=== PATIENT | female | born 2000 | race Hispanic/Latino ===

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

== ENCOUNTER 2019-07-20 11:13 | Emergency (ER) | payer BC ==
--- NOTE | 2019-07-20 12:28 | ER ---
Nurse's Notes [facility] Name: Nadia Bates Age: 19 yrs Sex: Female : 2000 Arrival Date: 07/20/2019 Time: 11:18 Bed 7 Private MD: Diagnosis: Headache;Other allergic rhinitis Presentation: 07/19 11:25 Chief complaint: Body aches and headache x 4 days, sinus congestion and drainage x 3 hb days, intermittent sharp left sided chest pain since yesterday. Denies chills/fever/N/V. Coronavirus screen: Proceed with normal triage. Ebola Screen: No symptoms or risks identified at this time. Initial Sepsis Screen: Does the patient meet any 2 criteria? No. Patient's initial sepsis screen is negative. Does the patient have a suspected source of infection? No. Patient's initial sepsis screen is negative. Risk Assessment: Do you want to hurt yourself or someone else? Patient reports no desire to harm self or others. Onset of symptoms was July 15, 2019. 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 - Social history:: Smoking status: Patient denies any tobacco usage or history of. - Family history:: not pertinent. Screenin:42 Abuse screen: Denies threats or abuse. Denies injuries from another. Nutritional ph screening: No deficits noted. Tuberculosis screening: No symptoms or risk factors identified. 11:51 Fall Risk None identified. ph Assessment: 11:40 General: Appears in no apparent distress. comfortable, well groomed, Behavior is calm, ph cooperative, appropriate for age. Pain: Complains of pain in head. Neuro: Level of Consciousness is awake, alert, obeys commands, Oriented to person, place, time, situation, Reports headache frontal area, Denies weakness dizziness. Cardiovascular: Denies chest pain, shortness of breath, Capillary refill < 3 seconds in bilateral fingers Patient's skin is warm and dry. Respiratory: Airway is patent Respiratory effort is even, unlabored, Respiratory pattern is regular, symmetrical, Breath sounds are clear bilaterally. Denies cough, shortness of breath. GI: No signs and/or symptoms were reported involving the gastrointestinal system. EENT: Reports nasal congestion nasal discharge pain when swallowing. Derm: Skin is intact, is healthy with good turgor, Skin is pink, warm \T\ dry. Musculoskeletal: Circulation, motion, and sensation intact. Range of motion: intact in all extremities. Vital Signs: 11:25 BP 115 / 80; Pulse 104; Resp 16; Temp 98.5; Pulse Ox 100% ; Weight 71.21 kg; Height 4 hb ft. 11 in. (149.86 cm); Pain 5/10; 12:17 BP 101 / 78; Pulse 81; Resp 16; Temp 97.9(TE); Pulse Ox 100% on R/A; mh5 11:25 Body Mass Index 31.71 (71.21 kg, 149.86 cm) hb [place] Coma Score: 12:25 Eye Response: spontaneous(4). Verbal Response: oriented(5). Motor Response: obeys [facility] commands(6). Total: 15. ED Course: 11:18 Patient arrived in ED. mr 11:28 Triage completed. hb 11:29 Arm band placed on. hb 11:30 Ronnie Mina MD is Attending Physician. marj 11:32 Jigna Mireles, RN is Primary Nurse. ph 11:40 Patient has correct armband on for positive identification. Bed in low position. Warm mh5 blanket given. Pulse ox on. NIBP on. 12:26 Ronnie Mina MD is Referral Physician. marj 12:52 No provider procedures requiring assistance completed. Patient admitted, IV remains in ph place. Administered Medications: No medications were administered Outcome: 12:27 Discharge ordered by . marj 12:53 Discharged to home ambulatory. ph 12:53 Condition: good 12:53 Discharge instructions given to patient, Instructed on discharge instructions, follow up and referral plans. medication usage, Demonstrated understanding of instructions, follow-up care, medications, Prescriptions given X 1. 12:53 Patient left the ED. ph Signatures: Ronnie Mina MD MD cha Rivera, Mary mr Jigna Mireles, DESMOND RN Lupe Fuentes RN RN Lucita Singh 5 Corrections: (The following items were deleted from the chart) :29 11:29 LMP 06/21/2019 hb hb
--- NOTE | 2019-07-20 12:28 | EDPHYS ---
Physician Documentation [facility] Name: Nadia Bates Age: 19 yrs Sex: Female : 2000 Arrival Date: 07/20/2019 Time: :18 Bed 7 Private MD: ED Physician Ronnie Mina HPI: 07/19 12:22 This 19 yrs old Female presents to ER via Ambulatory with complaints of marj Headache, Sore Throat, Chest Pain. 12:22 The patient complains of pain to the forehead. The patient describes the headache as marj aching. Onset: The symptoms/episode began/occurred 1 day(s) ago. Associated signs and symptoms: The patient has no apparent associated signs or symptoms. Severity of symptoms: At its worst the pain was mild, in the emergency department the pain is unchanged. 12:22 The patient presents with sore throat. The patient describes throat pain as burning. marj Onset: The symptoms/episode began/occurred 1 day(s) ago. Headache History: Denies prior headaches. Severity of symptoms: At their worst the symptoms were mild, in the emergency department the symptoms are unchanged. Modifying factors: The symptoms are alleviated by nothing, the symptoms are aggravated by nothing. Associated signs and symptoms: The patient has no apparent associated signs or symptoms. The symptoms are alleviated by nothing. the symptoms are aggravated by nothing. The patient has experienced similar episodes in the past, a few times. 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 - Social history:: Smoking status: Patient denies any tobacco usage or history of. - Family history:: not pertinent. ROS: 12:22 Constitutional: Negative for fever, chills, and weight loss, Eyes: Negative for injury, marj pain, redness, and discharge, Neck: Negative for injury, pain, and swelling, Cardiovascular: Negative for chest pain, palpitations, and edema, Respiratory: Negative for shortness of breath, cough, wheezing, and pleuritic chest pain, Abdomen/GI: Negative for abdominal pain, nausea, vomiting, diarrhea, and constipation, Back: Negative for injury and pain, : Negative for injury, bleeding, discharge, and swelling, MS/Extremity: Negative for injury and deformity, Skin: Negative for injury, rash, and discoloration, Neuro: Negative for headache, weakness, numbness, tingling, and seizure, Psych: Negative for depression, anxiety, suicide ideation, homicidal ideation, and hallucinations, Allergy/Immunology: Negative for hives, rash, and allergies, Endocrine: Negative for neck swelling, polydipsia, polyuria, polyphagia, and marked weight changes, Hematologic/Lymphatic: Negative for swollen nodes, abnormal bleeding, and unusual bruising. 12:22 ENT: Positive for sore throat. Exam: 12:22 Constitutional: This is a well developed, well nourished patient who is awake, alert, marj and in no acute distress. Head/Face: Normocephalic, atraumatic. Eyes: Pupils equal round and reactive to light, extra-ocular motions intact. Lids and lashes normal. Conjunctiva and sclera are non-icteric and not injected. Cornea within normal limits. Periorbital areas with no swelling, redness, or edema. ENT: Nares patent. No nasal discharge, no septal abnormalities noted. Tympanic membranes are normal and external auditory canals are clear. Oropharynx with no redness, swelling, or masses, exudates, or evidence of obstruction, uvula midline. Mucous membranes moist. Neck: Trachea midline, no thyromegaly or masses palpated, and no cervical lymphadenopathy. Supple, full range of motion without nuchal rigidity, or vertebral point tenderness. No Meningismus. Chest/axilla: Normal chest wall appearance and motion. Nontender with no deformity. No lesions are appreciated. Cardiovascular: Regular rate and rhythm with a normal S1 and S2. No gallops, murmurs, or rubs. Normal PMI, no JVD. No pulse deficits. Respiratory: Lungs have equal breath sounds bilaterally, clear to auscultation and percussion. No rales, rhonchi or wheezes noted. No increased work of breathing, no retractions or nasal flaring. Abdomen/GI: Soft, non-tender, with normal bowel sounds. No distension or tympany. No guarding or rebound. No evidence of tenderness throughout. Back: No spinal tenderness. No costovertebral tenderness. Full range of motion. Skin: Warm, dry with normal turgor. Normal color with no rashes, no lesions, and no evidence of cellulitis. MS/ Extremity: Pulses equal, no cyanosis. Neurovascular intact. Full, normal range of motion. Neuro: Awake and alert, GCS 15, oriented to person, place, time, and situation. Cranial nerves II-XII grossly intact. Motor strength 5/5 in all extremities. Sensory grossly intact. Cerebellar exam normal. Normal gait. Psych: Awake, alert, with orientation to person, place and time. Behavior, mood, and affect are within normal limits. 12:22 Neck: ROM/movement: is normal, no acute changes, Meningeal signs: are not present, Kernig's sign is negative, Brudzinski's sign is negative, Lymph nodes: no appreciated lymphadenopathy. Vital Signs: 11:25 BP 115 / 80; Pulse 104; Resp 16; Temp 98.5; Pulse Ox 100% ; Weight 71.21 kg; Height 4 hb ft. 11 in. (149.86 cm); Pain 5/10; 12:17 BP 101 / 78; Pulse 81; Resp 16; Temp 97.9(TE); Pulse Ox 100% on R/A; mh5 11:25 Body Mass Index 31.71 (71.21 kg, 149.86 cm) hb [place] Coma Score: 12:25 Eye Response: spontaneous(4). Verbal Response: oriented(5). Motor Response: obeys marj commands(6). Total: 15. MDM: 11:31 Patient medically screened. [facility] 12:25 Data reviewed: vital signs, nurses notes. marj 12:25 Differential diagnosis: migraine, tension headache. Data interpreted: monitor and storage bin tender: marj not applicable for this patient encounter. Pulse oximetry: on room air is 100 %. Test interpretation: by ED physician or midlevel provider:. Counseling: I had a detailed discussion with the patient and/or guardian regarding: the historical points, exam findings, and any diagnostic results supporting the discharge/admit diagnosis, lab results, the need for outpatient follow up, for definitive care, a family practitioner. ED course: non toxic well hydrated young healthy female. Administered Medications: No medications were administered Disposition: 07/20/19 12:27 Discharged to Home. Impression: Headache, Other allergic rhinitis. - Condition is Stable. - Discharge Instructions: General Headache Without Cause, Allergic Rhinitis, General Headache Without Cause, [id number]. - Prescriptions for Tracie- D 12 Hour 60-120 mg Oral Tablet Sustained Release 12 hr - take 1 tablet by ORAL route every 12 hours As needed; 20 tablet. - Work release form, Medication Reconciliation Form, Thank You Letter, Antibiotic Education, Prescription Opioid Use form. - Follow up: Ronnie Mina MD; When: 2 - 3 days; Reason: Recheck today's complaints, Continuance of care, Re-evaluation by your physician. - Problem is new. - Symptoms have improved. Signatures: Ronnie Mina MD MD cha Hall, Patricia, RN RN Lupe Fuentes RN RN Corrections: (The following items were deleted from the chart) 12:53 12:27 07/20/2019 12:27 Discharged to Home. Impression: Headache; Other allergic ph rhinitis. Condition is Stable. Forms are Medication Reconciliation Form, Thank You Letter, Antibiotic Education, Prescription Opioid Use. Follow up: Dr. Ronnie Mina; When: 2 - 3 days; Reason: Recheck today's complaints, Continuance of care, Re-evaluation by your physician. Problem is new. Symptoms have improved. marj
[2019-07-20 12:59] VITALS: O2SAT 100
[2019-07-20 13:00] VITALS: BP 101/78; TEMP 97.9
== END 2019-07-20 12:53 | disposition home or self-care (01) ==
LOC: ER 11:13
DX: J30.89 Other allergic rhinitis (principal); J45.909 Unspecified asthma, uncomplicated
CPT/HCPCS: 99283

== ENCOUNTER 2019-11-10 15:01 | Emergency (ER) | payer BC ==
--- NOTE | 2019-11-10 16:17 | ER ---
Nurse's Notes [facility] Name: Nadia Bates Age: 19 yrs Sex: Female : 2000 Arrival Date: 11/10/2019 Time: 15:04 Bed 23 Private MD: Alessio Maldonado R Diagnosis: Urinary tract infection, site not specified Presentation: 11/09 15:12 Chief complaint: Patient states: Painful urination for 3 days. No fever. Coronavirus ll1 screen: Client denies travel out of the [place] in the last 14 days. At this time, the client does not indicate any symptoms associated with coronavirus-19. Ebola Screen: Patient denies travel to an Ebola-affected area in the 21 days before illness onset. Initial Sepsis Screen: Does the patient meet any 2 criteria? No. Patient's initial sepsis screen is negative. Risk Assessment: Do you want to hurt yourself or someone else? Patient reports no desire to harm self or others. Onset of symptoms was November 08, 2019. 15:12 Method Of Arrival: Ambulatory ll1 15:12 Acuity: ANABELL 4 ll1 18:13 Initial Sepsis Screen: Does the patient have a suspected source of infection? Yes: ll1 Dysuria/Frequency/Urgency/UTI. Triage Assessment: 16:00 General: Appears in no apparent distress. Behavior is calm, cooperative. Pain: Denies ll1 pain. Aggravated by with urination only. 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 - Social history:: Smoking status: Patient denies any tobacco usage or history of. Screenin:00 Abuse screen: Denies threats or abuse. Nutritional screening: No deficits noted. ll1 Tuberculosis screening: No symptoms or risk factors identified. Fall Risk None identified. Total [place] Fall Scale indicates No Risk (0-24 pts). Assessment: 16:00 General: Appears in no apparent distress. Behavior is calm, cooperative. Pain: Denies ll1 pain. Neuro: No deficits noted. Cardiovascular: No deficits noted. Respiratory: No deficits noted. GI: Abdomen is flat, Bowel sounds present X 4 quads. Abd is soft and non tender X 4 quads. Patient currently denies diarrhea, nausea, vomiting. : Urine is clear, Reports burning with urination, since 3 days. Vital Signs: 15:12 BP 126 / 82; Pulse 100; Resp 17; Temp 99.1; Pulse Ox 100% ; Weight 73.94 kg; Height 4 ll1 ft. 11 in. (149.86 cm); Pain 6/10; 15:12 Body Mass Index 32.92 (73.94 kg, 149.86 cm) ll1 ED Course: 15:04 Patient arrived in ED. mr 15:04 Alessio Maldonado MD is Private Physician. mr 15:11 Anaebl Ghotra FNP-C is [facility]. kb 15:11 Amador Costa MD is Attending Physician. kb 15:13 Triage completed. ll1 15:13 Arm band placed on. ll1 16:03 Kesha Cedillo, DESMOND is Primary Nurse. iw 16:16 Alessio Maldonado MD is Referral Physician. kb 17:00 Patient has correct armband on for positive identification. Bed in low position. Call ll1 light in reach. Side rails up X 1. Cardiac monitoring not applicable on this patient. 17:00 No provider procedures requiring assistance completed. Patient did not have IV access ll1 during this emergency room visit. Administered Medications: 16:47 Drug: Macrobid 100 mg Route: PO; iw 18:09 Follow up: Response: No adverse reaction; RASS: Alert and Calm (0) ll1 Outcome: 16:16 Discharge ordered by . kb 17:02 Patient left the ED. iw 18:13 Discharged to home ambulatory. ll1 18:13 Condition: stable 18:13 Discharge instructions given to patient, Instructed on discharge instructions, follow up and referral plans. medication usage, Demonstrated understanding of instructions, follow-up care, medications, Prescriptions given X 1. Addendum: 11/13/2019 07:08 Addendum: Culture Results: Positive urine culture. No further action required. Bacteria e b sensitive to prescribed antibiotic. Signatures: Anabel Ghotra FNP-C FNP-Delmis Perri Mena mr Kesha Cedillo, DESMOND LOGAN Kiana Bejarano Lynsay, RN RN ll1 Corrections: (The following items were deleted from the chart) 11/09 18:12 18:10 General: Appears in no apparent distress. Behavior is calm, cooperative, ll1 ll1 18:12 18:10 Pain: Denies pain. ll1 ll1 18:12 18:10 Neuro: No deficits noted. ll1 ll1 18:12 18:10 Cardiovascular: No deficits noted. ll1 ll1 18:12 18:10 Respiratory: No deficits noted. ll1 ll1 18:12 18:10 : Urine is clear, Reports burning with urination, since 3 days ll1 ll1 18:12 18:10 GI: Abdomen is flat, Bowel sounds present X 4 quads. Abd is soft and non tender X ll1 4 quads. Patient currently denies diarrhea, nausea, vomiting, ll1
--- NOTE | 2019-11-10 16:17 | EDPHYS ---
Physician Documentation [facility] Name: Nadia Bates Age: 19 yrs Sex: Female : 2000 Arrival Date: 11/10/2019 Time: 15:04 Bed 23 Private MD: Alessio Maldonado R ED Physician Amador Costa HPI: 11/09 16:15 This 19 yrs old Female presents to ER via Ambulatory with complaints of kb Urinary Problem. 16:15 The patient presents with urinary symptoms, dysuria, frequency. Onset: The kb symptoms/episode began/occurred 3 day(s) ago. Modifying factors: The symptoms are alleviated by nothing, the symptoms are aggravated by urinating. Associated signs and symptoms: Pertinent positives: dysuria, urinary frequency. Severity of symptoms: At their worst the symptoms were moderate, in the emergency department the symptoms are unchanged. The patient has not experienced similar symptoms in the past. The patient has not recently seen a physician. 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 - Social history:: Smoking status: Patient denies any tobacco usage or history of. ROS: 16:13 Constitutional: Negative for fever, chills, and weight loss, Cardiovascular: Negative kb for chest pain, palpitations, and edema, Respiratory: Negative for shortness of breath, cough, wheezing, and pleuritic chest pain, Abdomen/GI: Negative for abdominal pain, nausea, vomiting, diarrhea, and constipation, Back: Negative for injury and pain, MS/Extremity: Negative for injury and deformity, Skin: Negative for injury, rash, and discoloration, Neuro: Negative for headache, weakness, numbness, tingling, and seizure. 16:13 : Positive for urinary symptoms, urinary frequency, burning with urination. Exam: 16:13 Constitutional: This is a well developed, well nourished patient who is awake, alert, kb and in no acute distress. Head/Face: Normocephalic, atraumatic. Chest/axilla: Normal chest wall appearance and motion. Nontender with no deformity. No lesions are appreciated. Cardiovascular: Regular rate and rhythm with a normal S1 and S2. No gallops, murmurs, or rubs. Normal PMI, no JVD. No pulse deficits. Respiratory: Lungs have equal breath sounds bilaterally, clear to auscultation and percussion. No rales, rhonchi or wheezes noted. No increased work of breathing, no retractions or nasal flaring. Abdomen/GI: Soft, non-tender, with normal bowel sounds. No distension or tympany. No guarding or rebound. No evidence of tenderness throughout. Skin: Warm, dry with normal turgor. Normal color with no rashes, no lesions, and no evidence of cellulitis. MS/ Extremity: Pulses equal, no cyanosis. Neurovascular intact. Full, normal range of motion. Neuro: Awake and alert, GCS 15, oriented to person, place, time, and situation. Cranial nerves II-XII grossly intact. Motor strength 5/5 in all extremities. Sensory grossly intact. Cerebellar exam normal. Normal gait. Vital Signs: 15:12 BP 126 / 82; Pulse 100; Resp 17; Temp 99.1; Pulse Ox 100% ; Weight 73.94 kg; Height 4 ll1 ft. 11 in. (149.86 cm); Pain 6/10; 15:12 Body Mass Index 32.92 (73.94 kg, 149.86 cm) ll1 MDM: 16:04 Patient medically screened. kb 16:14 Data reviewed: vital signs, nurses notes. Data interpreted: Pulse oximetry: on room air kb is 100 %. Interpretation: normal. Counseling: I had a detailed discussion with the patient and/or guardian regarding: the historical points, exam findings, and any diagnostic results supporting the discharge/admit diagnosis, lab results, the need for outpatient follow up, a family practitioner, to return to the emergency department if symptoms worsen or persist or if there are any questions or concerns that arise at home. 11/09 15:16 Order name: Urine Microscopic Only kb 11/09 16:02 Order name: Urine Dipstick--Ancillary (enter results); Complete Time: 16:25 mt 11/09 15:16 Order name: Urine Test (obtain specimen); Complete Time: 16:42 kb 11/09 15:16 Order name: Urine Dipstick-Ancillary (obtain specimen); Complete Time: 16:42 kb 11/09 16:42 Order name: Urine --Ancillary (enter results) iw Administered Medications: 16:47 Drug: Macrobid 100 mg Route: PO; iw 18:09 Follow up: Response: No adverse reaction; RASS: Alert and Calm (0) ll1 Disposition: 11/10 09:14 Co-signature as Attending Physician, Amador Costa MD I agree with the assessment and kdr plan of care. Disposition: 11/10/19 16:16 Discharged to Home. Impression: Urinary tract infection, site not specified. - Condition is Stable. - Discharge Instructions: Urinary Tract Infection, Adult, [id number]. - Prescriptions for Macrobid 100 mg Oral Capsule - take 1 capsule by ORAL route every 12 hours for 10 days; 20 capsule. - Medication Reconciliation Form, Thank You Letter, Antibiotic Education, Prescription Opioid Use, Work release form form. - Follow up: Emergency Department; When: As needed; Reason: Worsening of condition. Follow up: Alessio Maldonado MD; When: 2 - 3 days; Reason: Recheck today's complaints, Continuance of care, Re-evaluation by your physician. Signatures: Dispatcher [employer] EDMS Anabel Ghotra, CUSTOMER SERVICE ENGINEER-C CUSTOMER SERVICE ENGINEER-CkAmador Albert MD MD kdr Kesha Cedillo RN RN iw Akila Rausch RN RN ll1 Corrections: (The following items were deleted from the chart) 11/09 17:02 16:16 11/10/2019 16:16 Discharged to Home. Impression: Urinary tract infection, site iw not specified. Condition is Stable. Forms are Medication Reconciliation Form, Thank You Letter, Antibiotic Education, Prescription Opioid Use. Follow up: Emergency Department; When: As needed; Reason: Worsening of condition. Follow up: Alessio Maldonado; When: 2 - 3 days; Reason: Recheck today's complaints, Continuance of care, Re-evaluation by your physician. kb
[2019-11-10 16:24] LABS: Urine Blood TRACE (NEG); Urine Glucose NEGATIVE (NEG); Urine Protein NEGATIVE (NEG); Urine Specific Gravity 1.015 (1.005-1.030); Urine pH 6.5 (5.0-7.0)
[2019-11-10] MEDS ORDERED: NITROFURAN MACRO 100 MG CAP PO ONE (16:59)
[2019-11-10 17:03] LABS: Urine Specific Gravity 1.015 (1.005-1.030)
[2019-11-10 17:04] LABS: Urine Bacteria <20 /HPF (<20); Urine Culture Reflex Order REFLEXED; Urine Mucus 1+ /HPF (NONE SEEN)
[2019-11-10 17:10] VITALS: BP 126/82; TEMP 99.1; O2SAT 100
== END 2019-11-10 17:02 | disposition home or self-care (01) ==
LOC: ER 15:01
DX: N39.0 Urinary tract infection, site not specified (principal)
CPT/HCPCS: 81003; 81015; 81025; 87077; 87086; 87088; 87186; 99283

== ENCOUNTER 2019-12-30 15:14 | Emergency (ER) | payer BC ==
[2019-12-30 15:52] LABS: Absolute Lymphocytes (CBC) 1.9 K/uL (0.7-4.9); Basophils % 0.3 % (0-1.3); Hematocrit 38.9 % (36.0-45.0); Lymphocytes % 14.5 % (15.3-44.8); MPV 10.5 fL (7.6-11.3); RBC Red Blood Cell Count 4.52 M/uL (3.86-4.86)
[2019-12-30] MEDS ORDERED: DIPHENHYDRAMINE 50 MG/ML VIAL ONE (15:59)
[2019-12-30] MEDS ORDERED: METOCLOPRAMIDE 10 MG/2mL INJ ONE (15:59)
[2019-12-30] MEDS ORDERED: NA CHLORIDE 0.9% 1,000 ML ONE (16:00)
[2019-12-30] MEDS ORDERED: MORPHINE 2 MG/ML SYR ONE (16:00)
[2019-12-30 16:12] LABS: ALT/SGPT 59 U/L (12-78); AST/SGOT 58 U/L (15-37); Alkaline Phosphatase 65 U/L (45-117); BUN Blood Urea Nitrogen 6 mg/dL (7-18); Bicarbonate 29 mmol/L (21-32); Bilirubin Direct < 0.1 mg/dL (0-0.2); Bilirubin Total 0.4 mg/dL (0.2-1.0); Glucose Level 89 mg/dL (74-106); Lipase 77 U/L (73-393); Potassium 3.2 mmol/L (3.5-5.1); Sodium Level 141 mmol/L (136-145)
--- NOTE | 2019-12-30 17:55 | RAD REPORT ---
EXAM DESCRIPTION: CT - Abdomen Pelvis W Contrast - 12/30/2019 5:33 pm CLINICAL HISTORY: abdominal pain, vomiting COMPARISON: [facility] Protocol dated 03/05/2018 TECHNIQUE: Biphasic, helical CT imaging of the abdomen and pelvis was performed following 100 ml non -ionic IV contrast. Oral contrast was given. All CT scans are performed using dose optimization technique as appropriate and may include automated exposure control or mA/KV adjustment according to patient size. FINDINGS: No suspicious findings in the lung bases. The liver, spleen, and pancreas show no suspicious findings. Gallbladder and biliary tree are also wi thout suspicious finding. Symmetric renal function is seen with no hydronephrosis or suspicious renal mass. No pyelonephritis o r acute parenchymal process. No bladder abnormalities. No adrenal abnormalities. Uterus and ovaries s how no suspicious findings. No abnormality of the stomach, duodenum or jejunum. There is circumferential wall thickening and susan a involving the majority of the ileum including the terminal ileum. There is edema or stranding in th e surrounding fat. No appendicitis findings. Cecum and ascending colon are not involved. No active or acute colon process identifiable. No free air, free fluid or inflammatory stranding. No hernia, mass or bulky lymphadenopathy. No suspicious bony findings. IMPRESSION: Circumferential wall thickening, edema and adjacent inflammatory stranding involves most of the ileum including the terminal ileum. No history given that would indicate Crohn's disease history. This moderate severity ileitis pattern is nonspecific as to infectious or inflammatory etiology. No free air or surgically emergent finding.
--- NOTE | 2019-12-30 18:02 | ER ---
Nurse's Notes [facility] Name: Nadia Bates Age: 19 yrs Sex: Female : 2000 Arrival Date: 12/30/2019 Time: 15:18 Bed 13 Private MD: Diagnosis: Ilieitis;Abdominal Pain;Vomiting Presentation: 12/29 15:29 Chief complaint: Patient states: Epigastric pain with nausea for 1 day. Coronavirus ll1 screen: Client denies travel out of the [place] in the last 14 days. nausea, vomiting. Client presents with at least one sign or symptom that may indicate coronavirus-19. Standard/surgical mask placed on the client. Ebola Screen: Patient denies travel to an Ebola-affected area in the 21 days before illness onset. Initial Sepsis Screen: Does the patient meet any 2 criteria? No. Patient's initial sepsis screen is negative. Does the patient have a suspected source of infection? Yes: Acute abdominal pain. Risk Assessment: Do you want to hurt yourself or someone else? Patient reports no desire to harm self or others. Onset of symptoms was December 30, 2019. 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 - Social history:: Smoking status: Patient denies any tobacco usage or history of. Screenin:15 Abuse screen: Denies threats or abuse. Nutritional screening: No deficits noted. ll1 Tuberculosis screening: No symptoms or risk factors identified. Fall Risk IV access (20 points). Gait- Weak (10 pts.). Total Cordova Fall Scale indicates Low Risk Score (25-44 pts). Fall prevention measures have been instituted. Side Rails Up X 2 Frequent Obs/Assesments occuring As available Patient and Family Educated on Fall Prevention Program and strategies. Assessment: 15:35 General: Appears uncomfortable, Behavior is calm, cooperative, appropriate for age. ll1 Pain: Complains of pain in epigastric Quality of pain is described as aching, Pain began 1 day ago. Neuro: No deficits noted. Cardiovascular: No deficits noted. Respiratory: No deficits noted. GI: Abdomen is flat, Bowel sounds present X 4 quads. Abd is soft and non tender X 4 quads. Reports upper abdominal pain, nausea. : No deficits noted. 16:35 Reassessment: Patient and/or family updated on plan of care and expected duration. Pain ll1 level reassessed. Patient is alert, oriented x 3, equal unlabored respirations, skin warm/dry/pink. Patient states feeling better. 17:40 Reassessment: Patient and/or family updated on plan of care and expected duration. Pain ll1 level reassessed. Patient is alert, oriented x 3, equal unlabored respirations, skin warm/dry/pink. 18:15 Reassessment: Patient and/or family updated on plan of care and expected duration. Pain ll1 level reassessed. Patient is alert, oriented x 3, equal unlabored respirations, skin warm/dry/pink. Vital Signs: 15:29 BP 118 / 80; Pulse 72; Resp 18; Temp 97.5; Pulse Ox 100% ; Pain 10/10; ll1 18:02 BP 134 / 88; Pulse 70; Resp 16; Pulse Ox 100% on R/A; Pain 0/10; ll1 ED Course: 15:18 Patient arrived in ED. ds1 15:23 Dakota Mathias PA is PHCP. jmm 15:23 Julio Cesar Constantino MD is Attending Physician. jmm 15:29 Akila Rausch, DESMOND is Primary Nurse. ll1 15:30 Triage completed. ll1 15:31 Arm band placed on Patient placed in an exam room, on a stretcher. ll1 15:35 Patient has correct armband on for positive identification. Bed in low position. Call ll1 light in reach. Side rails up X 1. Pulse ox on. NIBP on. 15:40 Inserted saline lock: 22 gauge in right antecubital area, using aseptic technique. ll1 Blood collected. 16:21 Radiology exam delayed due to test not completed at this time. vm2 16:47 Radiology exam delayed due to test not completed at this time. vm2 17:10 Radiology exam delayed due to test not completed at this time. vm2 17:32 CT Abd/Pelvis - IV Contrast Only In Process Unspecified. EDMS 18:15 IV discontinued, intact, bleeding controlled, No redness/swelling at site. Pressure ll1 dressing applied. 18:16 No provider procedures requiring assistance completed. ll1 Administered Medications: 15:54 Drug: NS 0.9% 1000 ml Route: IV; Rate: 1 bolus; Site: left antecubital; ll1 18:03 Follow up: Response: No adverse reaction; RASS: Drowsy (-1); IV Status: Completed ll1 infusion; IV Intake: 1000ml 15:54 Drug: Reglan 10 mg Route: IVP; Site: left antecubital; ll1 18:03 Follow up: Response: No adverse reaction; RASS: Drowsy (-1) ll1 15:54 Drug: diphenhydrAMINE 12.5 mg Route: IVP; Site: left antecubital; ll1 18:03 Follow up: Response: No adverse reaction; Pain is decreased; RASS: Drowsy (-1) ll1 15:54 Drug: morphine 2 mg Route: IVP; Site: left antecubital; ll1 16:23 Follow up: Response: No adverse reaction; Pain is decreased; RASS: Alert and Calm (0) ll1 Intake: 18:03 IV: 1000ml; Total: 1000ml. ll1 Outcome: 18:01 Discharge ordered by . jony 18:16 Discharged to home ambulatory. ll1 18:16 Condition: stable 18:16 Discharge instructions given to patient, Instructed on discharge instructions, follow up and referral plans. medication usage, Demonstrated understanding of instructions, follow-up care, medications, Prescriptions given X 4. 18:17 Patient left the ED. 1 Signatures: Dispatcher [employer] EDMS Dakota Mathias PA PA jmm Sanford, Demi ds1 Lu Roper2 Akila Rausch, RN RN ll1
--- NOTE | 2019-12-30 18:02 | EDPHYS ---
Physician Documentation [facility] Name: Nadia Bates Age: 19 yrs Sex: Female : 2000 Arrival Date: 12/30/2019 Time: 15:18 Bed 13 Private MD: ED Physician Julio Cesar Constantino HPI: 12/29 15:34 This 19 yrs old Female presents to ER via Ambulatory with complaints of m Abdominal Pain, Nausea. 15:34 The patient presents with abdominal pain. Onset: The symptoms/episode began/occurred jmm acutely, today. The symptoms do not radiate. Associated signs and symptoms: Pertinent positives: nausea and vomiting, diarrhea. The symptoms are described as achy, crampy. The patient has not experienced similar symptoms in the past. Denies recent travel, abx use, infectious exposure. 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 - Social history:: Smoking status: Patient denies any tobacco usage or history of. ROS: 15:34 Constitutional: Negative for fever, chills, and weight loss, Cardiovascular: Negative jmm for chest pain, palpitations, and edema, Respiratory: Negative for shortness of breath, cough, wheezing, and pleuritic chest pain. 15:34 Abdomen/GI: Positive for abdominal pain, nausea and vomiting, diarrhea. 15:34 All other systems are negative. Exam: 15:34 Constitutional: This is a well developed, well nourished patient who is awake, alert, jmm and in no acute distress. Head/Face: atraumatic. Eyes: EOMI, no conjunctival erythema appreciated ENT: Moist Mucus Membranes Neck: Trachea midline, Supple Chest/axilla: Normal chest wall appearance and motion. Cardiovascular: Regular rate and rhythm. No edema appreciated Respiratory: Normal respirations, no respiratory distress appreciated 15:34 Abdomen/GI: Inspection: abdomen appears normal, Bowel sounds: normal, Palpation: soft, mild abdominal tenderness, in the left upper quadrant. 15:34 Musculoskeletal/extremity: ROM: intact in all extremities. 15:34 Skin: Appearance: Color: normal in color. 15:34 Neuro: Orientation: is normal, Mentation: is normal, Memory: is normal. 15:34 Psych: Behavior/mood is pleasant, cooperative. Vital Signs: 15:29 BP 118 / 80; Pulse 72; Resp 18; Temp 97.5; Pulse Ox 100% ; Pain 10/10; ll1 18:02 BP 134 / 88; Pulse 70; Resp 16; Pulse Ox 100% on R/A; Pain 0/10; ll1 MDM: 15:28 Patient medically screened. [facility] 17:59 Data reviewed: vital signs, nurses notes. Counseling: I had a detailed discussion with [facility] the patient and/or guardian regarding: the historical points, exam findings, and any diagnostic results supporting the discharge/admit diagnosis, lab results, radiology results, the need for outpatient follow up, smoking cessation. ED course: Patient advised of the need to follow up with gi for further evaluation. Patient is otherwise given strict return precautions. Patient understood and agrees with the plan of care. . 12/29 15:34 Order name: Basic Metabolic Panel; Complete Time: 16:37 [facility] 12/29 15:34 Order name: CBC with Diff; Complete Time: 15:58 [facility] 12/29 15:34 Order name: Hepatic Function; Complete Time: 16:37 [facility] 12/29 15:34 Order name: Lipase; Complete Time: 16:37 [facility] 12/29 16:01 Order name: CT Abd/Pelvis - IV Contrast Only; Complete Time: 17:59 [facility] 12/29 17:32 Order name: Urine Dipstick--Ancillary (enter results) 12/29 15:34 Order name: IV Saline Lock; Complete Time: 15:40 [facility] 12/29 15:34 Order name: Labs collected and sent; Complete Time: 15:40 [facility] 12/29 15:34 Order name: Urine Dipstick-Ancillary (obtain specimen); Complete Time: 18:17 [facility] 12/29 15:34 Order name: Urine Test (obtain specimen); Complete Time: 18:17 [facility] Administered Medications: 15:54 Drug: NS 0.9% 1000 ml Route: IV; Rate: 1 bolus; Site: left antecubital; ll1 18:03 Follow up: Response: No adverse reaction; RASS: Drowsy (-1); IV Status: Completed ll1 infusion; IV Intake: 1000ml 15:54 Drug: Reglan 10 mg Route: IVP; Site: left antecubital; ll1 18:03 Follow up: Response: No adverse reaction; RASS: Drowsy (-1) ll1 15:54 Drug: diphenhydrAMINE 12.5 mg Route: IVP; Site: left antecubital; ll1 18:03 Follow up: Response: No adverse reaction; Pain is decreased; RASS: Drowsy (-1) ll1 15:54 Drug: morphine 2 mg Route: IVP; Site: left antecubital; ll1 16:23 Follow up: Response: No adverse reaction; Pain is decreased; RASS: Alert and Calm (0) ll1 Disposition: 18:19 Co-signature as Attending Physician, Julio Cesar Constantino MD. rn Disposition: 12/30/19 18:01 Discharged to Home. Impression: Ilieitis, Abdominal Pain, Vomiting. - Condition is Stable. - Discharge Instructions: Abdominal Pain, Adult, Nausea and Vomiting, Adult. - Prescriptions for Zofran ODT 4 mg Oral tablet,disintegrating - place 1 tablet by TRANSLINGUAL route every 4-6 hours; 20 tablet. Bentyl 20 mg Oral Tablet - take 1 tablet by ORAL route every 6 hours As needed; 20 tablet. Flagyl 500 mg Oral Tablet - take 1 tablet by ORAL route every 6 hours for 10 days; 40 tablet. Cipro 500 mg Oral Tablet - take 1 tablet by ORAL route every 12 hours for 7 days; 14 tablet. - Medication Reconciliation Form, Thank You Letter, Antibiotic Education, Prescription Opioid Use form. - Follow up: Private Physician; When: 2 - 3 days; Reason: Recheck today's complaints, Continuance of care, Re-evaluation by your physician. Signatures: Dispatcher [employer] EDMS Dakota Mathias PA PA jmm Nieto, Roman, MD MD rn Lewis, Lynsay, RN RN ll1 Corrections: (The following items were deleted from the chart) 18:17 18:01 12/30/2019 18:01 Discharged to Home. Impression: Ilieitis; Abdominal Pain; ll1 Vomiting. Condition is Stable. Forms are Medication Reconciliation Form, Thank You Letter, Antibiotic Education, Prescription Opioid Use. Follow up: Private Physician; When: 2 - 3 days; Reason: Recheck today's complaints, Continuance of care, Re-evaluation by your physician. [email or web address]
[2019-12-30 18:05] LABS: Urine Blood NEGATIVE (NEG); Urine Glucose NEGATIVE (NEG); Urine Protein NEGATIVE (NEG); Urine Specific Gravity 1.025 (1.005-1.030); Urine pH 6.5 (5.0-7.0)
[2019-12-31 04:29] VITALS: TEMP 97.5; O2SAT 100
[2019-12-31 04:34] VITALS: BP 134/88
== END 2019-12-30 18:17 | disposition home or self-care (01) ==
LOC: ER 15:14
DX: K52.9 Noninfective gastroenteritis and colitis, unspecified (principal)
CPT/HCPCS: 96361; 85025; 80048; 36415; 80076; 81003; 83690; 74177; 96375; 96374; 99284; Q9967; J2765; J1200; J2270; J7030

== ENCOUNTER 2020-03-15 13:05 | Emergency (ER) | payer BC ==
[2020-03-15 15:19] LABS: Urine Blood 2+ (NEG); Urine Glucose NEGATIVE (NEG); Urine Protein NEGATIVE (NEG)
[2020-03-15] MEDS ORDERED: MECLIZINE HCL 12.5 MG TAB ONE (15:49)
[2020-03-15] MEDS ORDERED: METOCLOPRAMIDE 10 MG/2mL INJ ONE (15:49)
[2020-03-15] MEDS ORDERED: DIPHENHYDRAMINE 50 MG/ML VIAL ONE (15:49)
[2020-03-15] MEDS ORDERED: KETOROLAC 30 MG/ML INJ ONE (15:50)
[2020-03-15] MEDS ORDERED: NA CHLORIDE 0.9% 1,000 ML ONE (15:50)
--- NOTE | 2020-03-15 16:13 | RAD REPORT ---
EXAM DESCRIPTION: CT - Head Brain Wo Cont - 03/15/2020 4:08 pm CLINICAL HISTORY: Dizziness;Headache Headache, drowsiness COMPARISON: HEAD BRAIN W O CONTRAST dated 11/11/2014 TECHNIQUE: All CT scans are performed using dose optimization technique as appropriate and may inclu de automated exposure control or mA/KV adjustment according to patient size. FINDINGS: No intracranial hemorrhage, hydrocephalus or extra-axial fluid collection.No areas of brai n edema or evidence of midline shift. The paranasal sinuses and mastoids are clear. The calvarium is intact. IMPRESSION: No acute intracranial abnormality.
--- NOTE | 2020-03-15 16:33 | EDPHYS ---
Physician Documentation [facility] Name: Nadia Bates Age: 19 yrs Sex: Female : 2000 Arrival Date: 03/15/2020 Time: 13:09 Bed 26 Private MD: Alessio Maldonado R ED Physician Amador Costa HPI: 03/15 15:00 This 19 yrs old Female presents to ER via Ambulatory with complaints of cp Headache, Dizziness. 15:00 The patient complains of pain to the forehead. The patient describes the headache as cp aching, waxing and waning. Onset: The symptoms/episode began/occurred 3 day(s) ago. Associated signs and symptoms: Pertinent positives: dizziness, Pertinent negatives: fever, neck stiffness, paresthesias, sinus congestion, sinus tenderness, vision changes, vomiting, weakness. Severity of symptoms: in the emergency department the pain is unchanged, despite home interventions. Headache History: Other Patient denies headache being worse headache of life. Reports headache usually resolved with OTC meds. 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 - Social history:: Smoking status: Patient denies any tobacco usage or history of. ROS: 15:05 Constitutional: Negative for body aches, chills, fever, poor PO intake. cp 15:05 Eyes: Negative for injury, pain, redness, and discharge. cp 15:05 ENT: Negative for drainage from ear(s), ear pain, sore throat, difficulty swallowing, difficulty handling secretions. 15:05 Neck: Negative for pain with movement, pain at rest, stiffness. 15:05 Cardiovascular: Negative for chest pain, edema, palpitations. 15:05 Respiratory: Negative for cough, shortness of breath, wheezing. 15:05 Abdomen/GI: Negative for abdominal pain, nausea, vomiting, and diarrhea, constipation. 15:05 Neuro: Positive for dizziness, headache, Negative for altered mental status, numbness, syncope, weakness. 15:05 All other systems are negative. Exam: 15:10 Constitutional: The patient appears in no acute distress, alert, awake, comfortable, cp non-toxic, well developed, well nourished. 15:10 Head/Face: Normocephalic, atraumatic. cp 15:10 Eyes: Periorbital structures: appear normal, Pupils: equal, round, and reactive to light and accomodation, Extraocular movements: intact throughout, Conjunctiva: normal, no exudate, no injection, Sclera: no appreciated abnormality, Lids and lashes: appear normal, bilaterally. 15:10 ENT: External ear(s): are unremarkable, Nose: is normal, Mouth: Lips: moist, Oral mucosa: moist, Posterior pharynx: Airway: no evidence of obstruction, patent. 15:10 Neck: ROM/movement: is normal, is supple, without pain, no range of motions limitations, no meningismus. 15:10 Chest/axilla: Inspection: normal, Palpation: is normal, no crepitus, no tenderness. 15:10 Cardiovascular: Rate: normal, Rhythm: regular. 15:10 Respiratory: the patient does not display signs of respiratory distress, Respirations: normal, no use of accessory muscles, no retractions, labored breathing, is not present, Breath sounds: are clear throughout, no decreased breath sounds, no stridor, no wheezing. 15:10 Abdomen/GI: Inspection: abdomen appears normal, Palpation: abdomen is soft and non-tender, in all quadrants. 15:10 Back: pain, is absent, ROM is normal. 15:10 Neuro: Orientation: to person, place \T\ time. Mentation: is normal, Cerebellar function: is grossly normal, Motor: moves all fours, strength is normal, Sensation: is normal. Vital Signs: 13:14 BP 121 / 66; Pulse 75; Resp 16; Temp 97.0; Pulse Ox 99% ; Weight 73.94 kg; Height 5 ft. sv 0 in. (152.40 cm); Pain 5/10; 14:50 BP 91 / 56; Pulse 61; Resp 16 S; Pulse Ox 100% on R/A; ca1 15:50 BP 103 / 57; Pulse 62; Resp 16 S; Pulse Ox 100% on R/A; ca1 16:55 BP 110 / 65; Pulse 63; Resp 16 S; Pulse Ox 100% on R/A; ca1 17:48 BP 106 / 73; Pulse 66; Resp 16 S; Pulse Ox 100% on R/A; ca1 13:14 Body Mass Index 31.83 (73.94 kg, 152.40 cm) sv MDM: 14:57 Patient medically screened. cp 16:30 Data reviewed: vital signs, nurses notes, lab test result(s), radiologic studies, CT cp scan, and as a result, I will discharge patient. 16:30 Counseling: I had a detailed discussion with the patient and/or guardian regarding: the cp historical points, exam findings, and any diagnostic results supporting the discharge/admit diagnosis, radiology results, to return to the emergency department if symptoms worsen or persist or if there are any questions or concerns that arise at home. Response to treatment: the patient's symptoms have markedly improved after treatment, and as a result, I will discharge patient. 03/15 15:12 Order name: Urine Dipstick--Ancillary (enter results); Complete Time: 16:26 em 03/15 15:12 Order name: Urine --Ancillary (enter results); Complete Time: 16:26 [facility] 03/15 15:11 Order name: CT Head Brain wo Cont; Complete Time: 16:26 cp 03/15 14:53 Order name: Urine Dipstick-Ancillary (obtain specimen); Complete Time: 15:07 cp 03/15 14:53 Order name: Urine Test (obtain specimen); Complete Time: 15:07 cp 03/15 15:11 Order name: IV; Complete Time: 15:30 cp Administered Medications: 15:31 Drug: NS 0.9% 1000 ml Route: IV; Rate: 1 bolus; Site: right antecubital; ca1 16:30 Follow up: Response: No adverse reaction; IV Status: Completed infusion; IV Intake: ca1 1000ml 15:33 Drug: TORadol - Ketorolac 15 mg Route: IVP; Site: right antecubital; ca1 16:00 Follow up: Response: No adverse reaction; Pain is decreased ca1 15:35 Drug: Benadryl 12.5 mg Route: IVP; Site: right antecubital; ca1 16:00 Follow up: Response: No adverse reaction; Marked relief of symptoms ca1 15:38 Drug: Reglan 10 mg Route: IVP; Site: right antecubital; ca1 16:30 Follow up: Response: No adverse reaction; Marked relief of symptoms; Pain is decreased ca1 15:38 Drug: Meclizine 25 mg Route: PO; ca1 16:30 Follow up: Response: No adverse reaction; Marked relief of symptoms ca1 Disposition: 03/16 06:05 Co-signature as Attending Physician, Amador Costa MD I agree with the assessment and kdr plan of care. Disposition: 03/15/20 16:31 Discharged to Home. Impression: Headache. - Condition is Stable. - Discharge Instructions: General Headache Without Cause. - Prescriptions for Naprosyn 500 mg Oral Tablet - take 1 tablet by ORAL route 2 times per day take with food; 30 tablet. Zofran 4 mg Oral Tablet - take 1 tablet by ORAL route every 12 hours As needed; 20 tablet. - Medication Reconciliation Form, Thank You Letter, Antibiotic Education, Prescription Opioid Use, Work release form form. - Follow up: Private Physician; When: 1 - 2 days; Reason: Recheck today's complaints. - Problem is new. - Symptoms have improved. Signatures: Dispatcher [employer] Delmy Osman RN RN Amador Costa MD MD [facility] Ronnie Garcia PA PA cp Carol Ann Whitman RN RN ca1 Corrections: (The following items were deleted from the chart) 03/15 17:49 16:31 03/15/2020 16:31 Discharged to Home. Impression: Headache. Condition is Stable. ca1 Forms are Medication Reconciliation Form, Thank You Letter, Antibiotic Education, Prescription Opioid Use. Follow up: Private Physician; When: 1 - 2 days; Reason: Recheck today's complaints. Problem is new. Symptoms have improved. cp
--- NOTE | 2020-03-15 16:33 | ER ---
Nurse's Notes [facility] Name: Nadia Bates Age: 19 yrs Sex: Female : 2000 Arrival Date: 03/15/2020 Time: 13:09 Bed 26 Private MD: Alessio Maldonado R Diagnosis: Headache Presentation: 03/15 13:14 Chief complaint: Patient states: RASMUSSEN and dizziness for 3 days. No sv cough/congestion/fever. No N/V/D. Coronavirus screen: Client denies travel out of the [place] in the last 14 days. difficulty breathing, headache, sore throat, Client presents with at least one sign or symptom that may indicate coronavirus-19. Standard/surgical mask placed on the client. Ebola Screen: Patient denies travel to an Ebola-affected area in the 21 days before illness onset. Initial Sepsis Screen: Does the patient meet any 2 criteria? No. Patient's initial sepsis screen is negative. Does the patient have a suspected source of infection? Yes: Other: RASMUSSEN. Risk Assessment: Do you want to hurt yourself or someone else? Patient reports no desire to harm self or others. Onset of symptoms was March 13, 2020. 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 - Social history:: Smoking status: Patient denies any tobacco usage or history of. Screenin:55 Abuse screen: Denies threats or abuse. Denies injuries from another. Nutritional ca1 screening: No deficits noted. Tuberculosis screening: No symptoms or risk factors identified. Fall Risk IV access (20 points). Assessment: 14:50 General: Appears in no apparent distress. comfortable, Behavior is calm, cooperative, ca1 appropriate for age. Pain: Complains of pain in face and scalp Pain currently is 6 out of 10 on a pain scale. Pain began 2-3 days ago. Is continuous. Neuro: Level of Consciousness is awake, alert, obeys commands, Oriented to person, place, time, situation, Reports headache. Neuro: Reports dizziness, since yesterday. Cardiovascular: Heart tones S1 S2 present Capillary refill < 3 seconds Patient's skin is warm and dry. Respiratory: Airway is patent Respiratory effort is even, unlabored, Respiratory pattern is regular, symmetrical, Breath sounds are clear bilaterally. GI: Abdomen is round non-distended, Bowel sounds present X 4 quads. Abd is soft and non tender X 4 quads. : No signs and/or symptoms were reported regarding the genitourinary system. EENT: No signs and/or symptoms were reported regarding the EENT system. Derm: Skin is intact, is healthy with good turgor, Skin is pink, warm \T\ dry. Musculoskeletal: Circulation, motion, and sensation intact. Capillary refill < 3 seconds. 15:45 Reassessment: Patient appears in no apparent distress at this time. Patient and/or ca1 family updated on plan of care and expected duration. Pain level reassessed. Patient is alert, oriented x 3, equal unlabored respirations, skin warm/dry/pink. 16:55 Reassessment: Patient appears in no apparent distress at this time. Patient and/or ca1 family updated on plan of care and expected duration. Pain level reassessed. Patient is alert, oriented x 3, equal unlabored respirations, skin warm/dry/pink. 17:48 Reassessment: Patient appears in no apparent distress at this time. Patient is alert, ca1 oriented x 3, equal unlabored respirations, skin warm/dry/pink. Vital Signs: 13:14 BP 121 / 66; Pulse 75; Resp 16; Temp 97.0; Pulse Ox 99% ; Weight 73.94 kg; Height 5 ft. sv 0 in. (152.40 cm); Pain 5/10; 14:50 BP 91 / 56; Pulse 61; Resp 16 S; Pulse Ox 100% on R/A; ca1 15:50 BP 103 / 57; Pulse 62; Resp 16 S; Pulse Ox 100% on R/A; ca1 16:55 BP 110 / 65; Pulse 63; Resp 16 S; Pulse Ox 100% on R/A; ca1 17:48 BP 106 / 73; Pulse 66; Resp 16 S; Pulse Ox 100% on R/A; ca1 13:14 Body Mass Index 31.83 (73.94 kg, 152.40 cm) sv ED Course: 13:09 Patient arrived in ED. mr 13:09 Alessio Maldonado MD is Private Physician. mr 13:16 Triage completed. sv 13:17 Arm band placed on. sv 14:52 Carol Ann Whitman, DESMOND is Primary Nurse. ca1 14:52 Ronnie Garcia PA is PHCP. cp 14:52 Amador Costa MD is Attending Physician. cp 14:55 Patient has correct armband on for positive identification. Placed in gown. Bed in low ca1 position. Call light in reach. Side rails up X 1. Pulse ox on. NIBP on. Door closed. Noise minimized. Lights dimmed. Warm blanket given. 15:30 Inserted saline lock: 20 gauge in right antecubital area, using aseptic technique. ca1 16:08 CT Head Brain wo Cont In Process Unspecified. EDMS 17:47 No provider procedures requiring assistance completed. IV discontinued, intact, ca1 bleeding controlled, No redness/swelling at site. Pressure dressing applied. Administered Medications: 15:31 Drug: NS 0.9% 1000 ml Route: IV; Rate: 1 bolus; Site: right antecubital; ca1 16:30 Follow up: Response: No adverse reaction; IV Status: Completed infusion; IV Intake: ca1 1000ml 15:33 Drug: TORadol - Ketorolac 15 mg Route: IVP; Site: right antecubital; ca1 16:00 Follow up: Response: No adverse reaction; Pain is decreased ca1 15:35 Drug: Benadryl 12.5 mg Route: IVP; Site: right antecubital; ca1 16:00 Follow up: Response: No adverse reaction; Marked relief of symptoms ca1 15:38 Drug: Reglan 10 mg Route: IVP; Site: right antecubital; ca1 16:30 Follow up: Response: No adverse reaction; Marked relief of symptoms; Pain is decreased ca1 15:38 Drug: Meclizine 25 mg Route: PO; ca1 16:30 Follow up: Response: No adverse reaction; Marked relief of symptoms ca1 Intake: 16:30 IV: 1000ml; Total: 1000ml. ca1 Outcome: 16:31 Discharge ordered by . cp 17:49 Discharged to home ambulatory. ca1 17:49 Condition: stable 17:49 Discharge instructions given to patient, Instructed on discharge instructions, follow up and referral plans. medication usage, Demonstrated understanding of instructions, follow-up care, medications, Prescriptions given X 2. 17:49 Patient left the ED. ca1 Signatures: Dispatcher [employer] Delmy Osman RN RN [facility] mr Ronnie Garcia PA PA cp Acob, Cheryl, RN RN ca1
[2020-03-15 17:53] VITALS: TEMP 97
[2020-03-15 17:55] VITALS: O2SAT 100
[2020-03-15 17:58] VITALS: BP 106/73
== END 2020-03-15 17:49 | disposition home or self-care (01) ==
LOC: ER 13:05
DX: R51.9 Headache, unspecified (principal)
CPT/HCPCS: 96361; 81025; 81003; 70450; 96375; 96374; 99284; J2765; J1200; J7030